=== PATIENT | male | born 1960 | race African-American/Black ===

== ENCOUNTER 2018-11-30 14:04 | Inpatient (IN) | payer MEDICAID ==
[~2018-11-30] VITALS: Ht 182.9 cm; Wt 100.7 kg
[2018-11-30] MEDS ORDERED: ONDANSETRON HCL 4MG/2ML INJ IV STA (14:54)
[2018-11-30] MEDS ORDERED: MORPHINE SULFATE 4 MG/ML CPJ (NOT FOR IM USE) IV STA (14:54)
[2018-11-30] MEDS ORDERED: SODIUM CHLORIDE 0.9% 1,000 ML IV ONE (14:54)
[2018-11-30] MEDS ORDERED: ASPIRIN 81MG TABLET PO ONE (15:00)
[2018-11-30] MEDS ORDERED: NITROGLYCERIN 0.4MG TABLET SL SL PRN (15:00)
[2018-11-30 15:26] LABS: BASOPHILS % 0.6 % (0.0-2.0); EOSINOPHILS % 0.8 % (0.0-5.0); HEMATOCRIT. 38.6 % (42.0-52.0); MEAN CORPUSCULAR HEMOGLOBIN 30.6 pg (28.0-32.0); MEAN CORPUSCULAR VOLUME 90.6 fL (80.0-94.0); MEAN PLATELET VOLUME 7.3 fl (7.4-10.4); MONOCYTES % 5.8 % (2.0-8.0); NEUTROPHILS % 40.8 % (40.0-76.0); PLATELET 340 x1000/uL (130-400); RED BLOOD CELL COUNT 4.26 mill/uL (4.7-6.1); RED CELL DISTRIBUTION WIDTH 15.3 % (11.6-14.6)
[2018-11-30 15:28] LABS: CHLORIDE 110 mEq/L (98-107)
[2018-11-30 15:42] LABS: D-DIMER 1.17 mg/L FEU (<0.50); PARTIAL THROMBOPLASTIN TIME 29.2 sec (23.4-31.0); PROTHROMBIN TIME 10.1 sec (9.6-11.0)
[2018-11-30] MEDS ORDERED: IOHEXOL-350 100 ML BOTTLE ONE (18:57)
[2018-11-30] MEDS ORDERED: ACETAMINOPHEN 325MG TABLET PO PRN (20:45)
[2018-11-30] MEDS ORDERED: ONDANSETRON HCL 4MG/2ML INJ IV PRN (20:45)
[2018-11-30] MEDS ORDERED: DIPHENHYDRAMINE 50MG/ML VIAL IV PRN (20:45)
[2018-11-30] MEDS ORDERED: ENOXAPARIN 40MG/0.4ML SYR SUBCUT SCH (20:45)
[2018-11-30] MEDS ORDERED: CLONIDINE 0.1MG TABLET PO PRN (20:45)
[2018-11-30] MEDS ORDERED: DEXTROSE 50% WATER 50ML SYRINGE IV PRN (21:00)
[2018-11-30] MEDS ORDERED: INSULIN LISPRO 100 UNITS/ML SUBCUT SCH (21:00)
[2018-11-30] MEDS ORDERED: BLOOD SUGAR DIAGNOSTIC STRIP TEST SCH (21:00)
[2018-11-30] MEDS ORDERED: MAGNESIUM/ALUMINUM HYDROXIDE/SIMETHICONE 30ML UDC PO PRN (21:02)
[2018-11-30] MEDS: ENOXAPARIN 30MG/0.3ML SYR SUBCUT SCH (21:09)
[2018-11-30 21:39] LABS: *AMPHETAMINES SCREEN URINE NEGATIVE (NEGATIVE); *BARBITURATES SCREEN URINE NEGATIVE (NEGATIVE); *BENZODIAZEPINES SCREEN URINE NEGATIVE (NEGATIVE)
[2018-11-30 21:40] LABS: *COCAINE SCREEN URINE NEGATIVE (NEGATIVE); CANNABINOID URINE SCREEN NEGATIVE (NEGATIVE); METHADONE URINE SCREEN NEGATIVE (NEGATIVE); OPIATES URINE SCREEN NEGATIVE (NEGATIVE); PHENCYCLIDINE URINE SCREEN PRESUMTIVE POSITIVE (NEGATIVE)
[2018-11-30 22:00] VITALS: BP 122/68
[2018-11-30] MEDS: SODIUM CHLORIDE 0.9% INJ 3ML FLUSH IVF SCH (23:03)
[2018-11-30] MEDS: HYDROCODONE/ACETAMINOPHEN 10/325MG TABLET PO PRN (23:04)
[2018-12-01] VITALS: BP 122/68
[2018-12-01 04:00] VITALS: BP 110/73
[2018-12-01] MEDS: SODIUM CHLORIDE 0.9% INJ 3ML FLUSH IVF SCH ×3 (05:47→23:41)
[2018-12-01] MEDS: HYDROCODONE/ACETAMINOPHEN 10/325MG TABLET PO PRN ×3 (06:52→20:58)
[2018-12-01] MEDS: MULTIVITAMINS,THER W-MINERALS TABLET PO SCH (09:04)
[2018-12-01] MEDS: ENOXAPARIN 30MG/0.3ML SYR SUBCUT SCH ×2 (09:05→20:57)
[2018-12-01 12:00] VITALS: BP 115/76
[2018-12-01 16:00] VITALS: BP 126/75
[2018-12-01 20:00] VITALS: BP 114/59
[2018-12-02] VITALS: BP 104/65
[2018-12-02] MEDS: HYDROCODONE/ACETAMINOPHEN 10/325MG TABLET PO PRN ×2 (03:21→08:29)
[2018-12-02 04:00] VITALS: BP_SYST 104; BP_SYST 117; BP_SYST 127; BP_DIAS 63; BP_DIAS 72
[2018-12-02] MEDS: SODIUM CHLORIDE 0.9% INJ 3ML FLUSH IVF SCH (05:25)
[2018-12-02 08:00] VITALS: BP 111/78
[2018-12-02] MEDS: ENOXAPARIN 30MG/0.3ML SYR SUBCUT SCH (08:28)
[2018-12-02] MEDS: MULTIVITAMINS,THER W-MINERALS TABLET PO SCH (09:10)
[2018-12-02 09:11] VITALS: BP 139/56
== END 2018-12-02 09:54 | disposition home or self-care (01) | DRG 203 ==
LOC: ER 14:45 → 8WST 17:12 → EDBD 17:12 → ENRESERV 18:25
PROVIDERS: ADMIT Internal Medicine; ATTEND Internal Medicine
DX: M94.0 Chondrocostal junction syndrome [Tietze] (principal); E11.9 Type 2 diabetes mellitus without complications; F10.10 Alcohol abuse, uncomplicated; S70.02XA Contusion of left hip, initial encounter; F17.210 Nicotine dependence, cigarettes, uncomplicated; I10 Essential (primary) hypertension; Z96.643 Presence of artificial hip joint, bilateral; F32.9 Major depressive disorder, single episode, unspecified; W19.XXXA Unspecified fall, initial encounter; Y93.89 Activity, other specified; Y92.89 Other specified places as the place of occurrence of the external cause; Z59.0 Homelessness; Z79.899 Other long term (current) drug therapy; Z82.49 Family history of ischemic heart disease and other diseases of the circulatory system; Y99.8 Other external cause status
CPT/HCPCS: 36415; 71045; 71275; 72100; 73502; 73552; 80305; 83036; 83880; 84484; 85379; 93005; 93306; 96361; 96374; 96375; 97162; 99285; J1650; J2270; J2405; J7030; Q9967

== ENCOUNTER 2024-08-02 06:17 | Emergency (ER) | payer MEDICAID ==
[~2024-08-02] VITALS: Ht 182.9 cm; Wt 82.0 kg
[2024-08-02 06:25] VITALS: O2SAT 97
[2024-08-02 06:47] VITALS: BP 154/117; PULSE 80; RESP 18; TEMP 36.7; O2SAT 99
[2024-08-02] MEDS: ACETAMINOPHEN WITH CODEINE 300/30MG TABLET PO ONE (08:13)
[2024-08-02 09:26] LABS: BASOPHILS % 0.4 % (0.0-2.0); EOSINOPHILS % 1.4 % (0.0-5.0); HEMATOCRIT. 38.8 % (42.0-52.0); HEMOGLOBIN. 13.2 g/dL (14.0-18.0); LYMPHOCYTES % 34.3 % (20.0-50.0); MEAN CORPUSCULAR HEMOGLOBIN 32.1 pg (28.0-32.0); MEAN CORPUSCULAR HGB CONC 33.9 g/dL (31.0-37.0); MEAN CORPUSCULAR VOLUME 94.7 fL (80.0-94.0); MEAN PLATELET VOLUME 6.8 fl (7.4-10.4); NEUTROPHILS % 57.9 % (40.0-76.0); PLATELET 338 x1000/uL (130-400); RED CELL DISTRIBUTION WIDTH 12.8 % (11.6-14.6); WHITE BLOOD COUNT 5.6 x1000/uL (4.5-11.0)
[2024-08-02] MEDS ORDERED: TOPUD PO (09:27)
[2024-08-02 09:35] LABS: CHLORIDE 106 mEq/L (98-107); POTASSIUM 3.7 mEq/L (3.5-5.1); SODIUM 140 mEq/L (136-145)
[2024-08-02 09:36] LABS: CARBON DIOXIDE 28 mEq/L (21-32)
[2024-08-02 09:37] LABS: CALCIUM 9.7 mg/dL (8.7-10.4)
[2024-08-02 09:41] LABS: CREATININE 0.9 mg/dL (0.6-1.3); GLUCOSE 89 mg/dL (70-105); UREA NITROGEN BLOOD 11 mg/dL (9-23)
[2024-08-02 09:43] LABS: ALANINE AMINOTRANSFERASE 21 IU/L (10-49); ALBUMIN 4.4 g/dL (3.2-4.8); ASPARTATE AMINOTRANSFERASE 23 IU/L (<34); BILIRUBIN DIRECT 0.2 mg/dL (<=3.0)
[2024-08-02 09:44] LABS: BILIRUBIN TOTAL 0.5 mg/dL (0.1-1.0); PROTEIN TOTAL 7.5 g/dL (6.0-8.3)
== END 2024-08-02 10:59 | disposition home or self-care (01) ==
LOC: ER 06:17
DX: G89.29 Other chronic pain (principal); M54.9 Dorsalgia, unspecified; Z88.0 Allergy status to penicillin; Z79.899 Other long term (current) drug therapy
CPT/HCPCS: 80076; 80048; 83690; 85025; 85610; 36415; 72100; 73620; 99284; Z7610 ×4; A4606